=== PATIENT | male | born 2000 | race Caucasian/White ===

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

== ENCOUNTER 2023-07-26 23:57 | Emergency (ER) | payer OTHER, SELFPAY ==
--- NOTE | ~2023-07-26 | CT_ITS ---
CT of the Abdomen and Pelvis: Indication: Abdominal pain Technique: 2.5 mm axial scans were obtained through the abdomen and pelvis following intravenous adm inistration of 100 cc of Omnipaque 350. Dose reduction technique was used on this scan by utilizing a utomated exposure control and iterative reconstruction technique. The dose-length product (DLP) was 1 248.06 mGy-cm. Findings: Scans through the lung bases are unremarkable. The liver, spleen, pancreas, gallbladder, adrenals and kidneys are within normal limits. No evidence of aortic aneurysm. No retroperitoneal lymphadenopathy. No bowel obstruction or bowel wall thickening. There is no evidence to suggest acute appendicitis. Sh otty right lower quadrant lymph nodes are present. Images through the pelvis were performed. Urinary bladder unremarkable. Prostate gland and seminal ve sicles are unremarkable. No ascites. There are bilateral L5 pars interarticularis defects, without munoz bluxation at this time. Impression: Shotty right lower quadrant lymph nodes. Correlate for mesenteric adenitis. Bilateral L5 pars interarticularis defects. Reviewed, dictated and finalized at [facility]. [employer] Impression: Shotty right lower quadrant lymph nodes. Correlate for mesenteric adenitis. Bilateral L5 pars interarticularis defects.
[2023-07-27 00:18] VITALS: BP 147/81; PULSE 78; RESP 16; TEMP 36.4; O2SAT 100
[2023-07-27 02:38] LABS: Add Urine Microscopic? NO; Appearance Urine Clear (Clear); Bilirubin Urine Negative (Negative); Blood Urine Negative (Negative); Color Urine Yellow (Yellow); Glucose Urine UA Negative (Negative); Ketones Urine Negative (Negative); Leukocyte Esterase Ur Negative LEU/UL (Negative); Nitrate Urine Negative (Negative); Protein Urine Negative (Negative); Specific Grav Ur 1.018 (1.001-1.035)
[2023-07-27 02:40] LABS: Basophils Absolute Auto 0.1 K/mm3 (0.0-0.1); Basophils Percent Auto 1.1 % (0.2-1.2); Eosinophils Absolute Auto 0.8 K/mm3 (0-0.3); Eosinophils Percent Auto 11.1 % (0-4.4); Hematocrit 52.1 % (42.0-52.0); Hemoglobin 17.4 g/dL (14.0-18.0); Immature Granulocyte Absolute 0.03 K/mm3 (0.00-0.031); Immature Granulocyte Percent A 0.4 % (0-0.5); Lymphocytes Percent Auto 25.5 % (18.3-44.2); Mean Corpuscular HGB Conc 33.4 g/dl (32-36); Mean Corpuscular Hemoglobin 30.4 pg (26-34); Mean Corpuscular Volume 91.1 fl (80-100); Mean Platelet Volume 12.2 fl (7.4-10.4); Monocytes Absolute Auto 0.6 K/mm3 (0.1-0.6); Monocytes Percent Auto 7.5 % (2.6-8.5); Neutrophils Absolute Auto 4.1 K/mm3 (1.3-6.7); Neutrophils Percent Auto 54.4 % (45.5-73.1); Platelet Count Result 234 k/mm3 (150-375); Red Blood Count 5.72 M/mm3 (4.6-6.20); Red Cell Distribution Width 12.6 % (11.5-14.5); White Blood Count 7.5 K/mm3 (4.5-10.0)
[2023-07-27 02:47] LABS: Alanine Aminotransferase 49 U/L (6-50); Albumin Level 5.1 g/dL (3.5-5.1); Alkaline Phosphatase 95 U/L (38-126); Anion Gap 14 mmol/L (8-16); Aspartate Amino Transferase 31 U/L (17-59); Bilirubin,Total 0.6 mg/dL (0.2-1.3); Blood Urea Nitrogen 12 mg/dL (9-20); Calcium 9.3 mg/dL (8.4-10.2); Carbon Dioxide 19 mmol/L (22-30); Chloride 109 mmol/L (98-107); Estimated CRCL calculation 119 ml/min; Estimated Glomerular Filt Rate > 60; Glucose 101 mg/dL (65-110); Lipase 72 U/L (23-300); Potassium 3.9 mmol/L (3.4-5.0); Sodium 142 mmol/L (137-145)
--- NOTE | 2023-07-27 02:55 | ED.ABDPAIN ---
HPI - Abdominal Pain General Chief Complaint: Abdominal Pain Stated Complaint: abd pain Time Seen by Provider: 07/27/23 01:52 History of Present Illness HPI narrative: Patient presents to the emergency department with his mom. He has had intermittent episodes of left-sided abdominal pain and vomiting over the past 6 weeks. Also having diarrhea daily. Denies fevers and chills. Related Data Home Medications Medication Instructions Recorded Confirmed Keppra 250 mg BID 04/27/20 04/27/20 Allergies Allergy/AdvReac Type Severity Reaction Status Date / Time No Known Allergies Allergy Verified 07/27/23 00:18 Review of Systems Review of Systems: Negative except what is documented in the [facility] Social History Social History Gender identity (if verbalized by the patient): Male Exam Narrative: GENERAL: Well-appearing, well-nourished, and in no acute distress. HEAD: Normocephalic, atraumatic. EYES: PERRLA and EOMI. ENT: Nares clear, no rhinorrhea or epistaxis. Mucous membranes moist. NECK: Supple. CHEST: Clear to auscultation. No respiratory distress. HEART: Regular rate and rhythm. ABDOMEN: Soft, nondistended, mild left-sided tenderness EXTREMITIES: Normal range of motion. No edema. SKIN: Warm, dry, no rash. NEURO: No focal deficits. Alert and oriented x3. PSYCH: Normal mood and affect. Course Course Emergency Course: Concern for colitis possible Crohn's or ulcerative colitis. CT and labs pending Vital Signs Vital signs: Vital Signs Temperature 36.4 C 07/27/23 00:18 Pulse Rate 78 07/27/23 00:18 Respiratory Rate 16 07/27/23 00:18 Blood Pressure 147/81 H 07/27/23 00:18 Pulse Oximetry 100 07/27/23 00:18 Oxygen Delivery Room Air 07/27/23 00:18 Temperature 36.4 C 07/27/23 00:18 Pulse Rate 66 07/27/23 04:30 Respiratory Rate 14 07/27/23 04:30 Blood Pressure 138/75 07/27/23 04:30 Pulse Oximetry 97 07/27/23 04:30 Oxygen Delivery Room Air 07/27/23 00:18 MDM - Abdominal Pain Lab Data 07/27/23 02:28 07/27/23 02:28 Labs: Lab Results 07/27/23 Range/Units 02:28 WBC 7.5 (4.5-10.0) K/mm3 RBC 5.72 (4.6-6.20) M/mm3 Hgb 17.4 (14.0-18.0) g/dL Hct 52.1 H (42.0-52.0) % MCV 91.1 (80-100) fl MCH 30.4 (26-34) pg MCHC 33.4 (32-36) g/dl RDW 12.6 (11.5-14.5) % Plt Count 234 (150-375) k/mm3 MPV 12.2 H (7.4-10.4) fl Immature Gran % (Auto) 0.4 (0-0.5) % Neut % (Auto) 54.4 (45.5-73.1) % Lymph % (Auto) 25.5 (18.3-44.2) % [place] % (Auto) 7.5 (2.6-8.5) % Eos % (Auto) 11.1 H (0-4.4) % Baso % (Auto) 1.1 (0.2-1.2) % Lymph # (Auto) 1.90 (0.9-3.2) K/mm3 [place] # (Auto) 0.6 (0.1-0.6) K/mm3 Eos # (Auto) 0.8 H (0-0.3) K/mm3 Baso # (Auto) 0.1 (0.0-0.1) K/mm3 Abs Immat Gran (auto) 0.03 (0.00-0.031) K/mm3 Absolute Neuts (auto) 4.1 (1.3-6.7) K/mm3 Absolute Nucleated RBC 0.0 (0.0-0.012) K/mm3 Nucleated RBC % 0.0 (0.0-0.2) % Sodium 142 (137-145) mmol/L Potassium 3.9 (3.4-5.0) mmol/L Chloride 109 H (98-107) mmol/L Carbon Dioxide 19 L (22-30) mmol/L Anion Gap 14 (8-16) mmol/L BUN 12 (9-20) mg/dL Creatinine 1.00 (0.7-1.3) mg/dL Estim Creat Clear Calc 119 ml/min Estimated GFR > 60 (59 - ) Glucose 101 (65-110) mg/dL Calcium 9.3 (8.4-10.2) mg/dL Total Bilirubin 0.6 (0.2-1.3) mg/dL AST 31 (17-59) U/L ALT 49 (6-50) U/L Alkaline Phosphatase 95 (38-126) U/L Total Protein 9.0 H (6.3-8.2) g/dL Albumin 5.1 (3.5-5.1) g/dL Lipase 72 (23-300) U/L Urine Color Yellow (Yellow) Urine Appearance Clear (Clear) Urine pH 6.0 (5.0-9.0) Ur Specific [place] 1.018 (1.001-1.035) Urine Protein Negative (Negative) mg/dL Urine Glucose (UA) Negative (Negative) mg/dL Urine Ketones Negative (Negative) mg/dL Ur Blood (Man) Negative (Negative) Urine Nitrate Negative (N
[2023-07-27 03:00] VITALS: BP 140/89; PULSE 99; RESP 14; O2SAT 98
[2023-07-27 04:30] VITALS: BP 138/75; PULSE 66; RESP 14; O2SAT 97
== END 2023-07-27 05:20 | disposition home or self-care (01) ==
PROVIDERS: Emergency Provider Emergency Medicine
DX: R10.9 Unspecified abdominal pain (principal); R11.10 Vomiting, unspecified; R19.7 Diarrhea, unspecified
CPT/HCPCS: 36415; 74177; 80053; 81003; 83690; 85025; 99284; Q9967

== ENCOUNTER 2023-08-23 02:54 | Day surgery (SDC) | payer OTHER, SELFPAY ==
[2023-08-17 12:15] VITALS: BMI 35.4
--- NOTE | 2023-08-20 10:45 | SUR.PREOP ---
Patient called regarding upcoming procedure. Message left on patient's voicemail regarding preop instructions, appointment times, and procedure prep.
[2023-08-23 09:46] VITALS: BP 127/88; PULSE 83; RESP 16; TEMP 36.3; O2SAT 98
[2023-08-23] MEDS: LACTATED RINGERS 1,000 ML 150 ML IV CONT (09:54)
--- NOTE | 2023-08-23 10:15 | P.PNAN_ITS ---
Anes - Initial Pre Proc Eval Procedure: Operation Date: 08/23/23 11:00 Proposed Procedures p Colonoscopy - Jaret Ayala MD Date/Time: 08/23/23 10:15 Surgeon: Jaret Ayala MD Pre Op Diagnosis: Nonspecific mesenteric lymphadenitis Patient Data Age: 23 Gender: M Height: 1.75 m Weight: 108.9 kg Last Vital Signs Temp 97.4 F L 08/23/23 09:46 Pulse 83 08/23/23 09:46 Resp 16 08/23/23 09:46 BP 127/88 08/23/23 09:46 Pulse Ox 98 08/23/23 09:46 O2 Del Method Room Air 08/23/23 09:46 Allergies Allergy/AdvReac Type Severity Reaction Status Date / Time No Known Allergies Allergy Verified 08/23/23 09:42 Home Medications Medication Instructions Recorded Confirmed Type erenumab-aooe 70 mg/mL 70 mg subcut MONTHLY 08/11/23 08/23/23 History subcutaneous auto-injector (Aimovig Autoinjector) rimegepant 75 mg disintegrating 75 mg PO ONCE PRN MIGRAINES 08/11/23 08/23/23 History tablet (Nurtec ODT) dicyclomine 10 mg capsule 10 mg PO TID 08/17/23 08/23/23 History levetiracetam 1,000 mg tablet 1,000 mg PO BID 08/17/23 08/23/23 History (Keppra) topiramate 100 mg tablet 100 mg PO BID 08/17/23 08/23/23 History topiramate 50 mg tablet 50 mg PO BID 08/17/23 08/23/23 History Patient hx anesthesia problems: none Family hx anesthesia problems: none Results Review: All pre-operative results and documents have been reviewed as part of the pre- operative evaluation. [facility] Past Medical History Medical History (Updated 08/11/23 @ 10:53 by Kalyani Moreau APRN) Abdominal pain Diarrhea Mesenteric adenitis Migraines Nausea and vomiting Obesity Social History Social History (Updated 08/11/23 @ 10:06 by Mckayla De La O MA) Smoking status: Never smoker Alcohol intake: current Substance use: never Substance use type: does not use Living arrangements: with family Gender identity (if verbalized by the patient): Male Spiritual care concerns: No Anes - Eval Final PreProcedure Day of Procedure 08/23/23 10:15 Patient weight: obese Heart: regular rate and rhythm Lungs: clear to auscultation Airway: Mallampati scale class II Neurological: alert and oriented Last oral intake: >/= 8 hours ASA classification: II Emergent: no Anesthetic plan: proceed Anesthesia type and monitoring: general GIVS and standard monitoring Results Review: All pre-operative results and documents have been reviewed as part of the pre- operative evaluation. Informed Consent: The patient's anesthetic plan and its attendant risks and benefits were discussed with the patient/family/POA. Questions were solicited and answers provided to the satisfaction of the patient/family/POA.
--- NOTE | 2023-08-23 10:27 | WPDHPUPDATE1 ---
History and Physical Update Update Date/Time: 08/23/23 10:27 History and Physical has been reviewed, including an updated exam of the patient. There are NO changes in the patient's condition. Risks, benefits, and alternatives have been discussed and questions answered. Patient agrees to proceed with procedure.
[2023-08-23 10:51] VITALS: BP 126/72; PULSE 62; RESP 20; O2SAT 100
[2023-08-23 11:01] VITALS: BP 120/75; PULSE 58; RESP 19; O2SAT 100
[2023-08-23 11:11] VITALS: BP 127/83; PULSE 59; RESP 19; O2SAT 100
== END 2023-08-23 11:14 | disposition home or self-care (01) ==
PROVIDERS: Visit Provider Internal Medicine Gastroenterology
PROC: 0DJD8ZZ Inspection of Lower Intestinal Tract, Via Natural or Artificial Opening Endoscopic (ICD-10-PCS; CPT 45378; principal; 2023-08-23 11:00)
DX: I88.0 Nonspecific mesenteric lymphadenitis (principal); K64.8 Other hemorrhoids; G43.909 Migraine, unspecified, not intractable, without status migrainosus; E66.9 Obesity, unspecified; Z68.35 Body mass index [BMI] 35.0-35.9, adult
CPT/HCPCS: 45378; J2704; J7120

== ENCOUNTER 2024-02-15 08:12 | Emergency (ER) | payer OTHER, SELFPAY ==
[2024-02-15 08:19] VITALS: BP 128/79; PULSE 97; RESP 16; TEMP 36.8; O2SAT 98
--- NOTE | 2024-02-15 08:24 | ED.EAR ---
HPI - Ear Problem General Chief complaint: Ear Stated complaint: Ear Pain Time Seen by Provider: 02/15/24 08:30 Source: patient, RN notes reviewed and old records reviewed Mode of arrival: ambulatory Limitations: no limitations History of Present Illness HPI Narrative: 23 year old male who presents to [facility] care with complaints of left ear pain for about 2 week duration and some times headache discomfort along with his ear pain. Patient reports no sinus congestion or drainage, denies any known fevers, chills or sweats or any body aches. Patient reports history of migraines and states that they are much better controlled now with medication regime usually 2 a month now. MD Complaint: ear pain Location: left ear Duration: constant Severity: moderate Discharge from ear: Reports no Treatment prior to arrival: other (took topiramate) Related Data Home Medications Medication Instructions Recorded Confirmed erenumab-aooe 70 mg/mL 70 mg subcut MONTHLY 08/11/23 02/15/24 subcutaneous auto-injector (Aimovig Autoinjector) rimegepant 75 mg disintegrating 75 mg PO ONCE PRN MIGRAINES 08/11/23 02/15/24 tablet (Nurtec ODT) levetiracetam 1,000 mg tablet 1,000 mg PO BID 08/17/23 02/15/24 (Keppra) topiramate 100 mg tablet 100 mg PO BID 08/17/23 02/15/24 topiramate 50 mg tablet 50 mg PO BID 08/17/23 02/15/24 Allergies Allergy/AdvReac Type Severity Reaction Status Date / Time No Known Allergies Allergy Verified 02/15/24 08:28 Review of Systems Review of Systems: CONSTITUTIONAL: Denies malaise, chills, sweats, or fever. EYES: Denies visual changes, redness, or discharge. ENT: Reports no rhinorrhea, congestion, sinus pain, left otalgia and no sore throat. CARDIOVASCULAR: Denies chest pain, palpitations, or edema. RESPIRATORY: Reports no cough.? Denies dyspnea. GASTROINTESTINAL: Denies abdominal pain, nausea, vomiting, diarrhea SKIN: Denies rash or itching. MUSCULOSKELETAL: Denies myalgia. NEUROLOGIC: positive for headaches. All systems reviewed & are unremarkable except as noted in HPI and below PMFSH Past Medical History Medical History Abdominal pain Diarrhea Mesenteric adenitis Migraines Nausea and vomiting Obesity Seizures none since 6th grade on Keppra Social History Social History Smoking status: Never smoker Alcohol intake: current Substance use: never Substance use type: does not use Living arrangements: with family Gender identity (if verbalized by the patient): Male Spiritual care concerns: No Comments At time of signature, agree with nursing past medical, surgical, social and family history. There is no relevant family history pertinent to the presenting complaint Exam Narrative: GENERAL: Well-appearing, well-nourished, and in no acute distress. HEAD: Normocephalic EYES: PERRLA, conjunctivae clear, no nystagmus ENT: Nares clear, turbinates edematous and erythematous, clear discharge. Mucous membranes moist.Left ear with some redness, Right TM pearly iniguez with dull light reflex bilaterally; no tragal tenderness. Oropharynx erythematous without lesions. Tonsils not enlarged and without exudate, no drooling, no hoarseness, no trismus, uvula midline. NECK: Supple. No lymphadenopathy CHEST: Clear to auscultation, breath sounds equal. No wheezing, rhonchi, rales, or stridor. No respiratory distress, speaks in full sentences.no cough noted SAO2 98% on room air HEART: Regular rate and rhythm. No murmur heard. SKIN: Warm, dry, no rash. NEURO: Alert and oriented x3. PSYCH: Normal mood and affect Course Course Emergency Course: Patient is aware of diagnosis, understands and agrees to treatment plan.? Anticipatory guidance given.? Patient agrees to follow-up as directed and is aware of reasons to seek care at the emergency department. Yannick
== END 2024-02-15 08:45 | disposition home or self-care (01) ==
PROVIDERS: Emergency Provider Registered Nurse
DX: H65.02 Acute serous otitis media, left ear (principal); E66.9 Obesity, unspecified; Z68.35 Body mass index [BMI] 35.0-35.9, adult
CPT/HCPCS: 99213; G0463

== ENCOUNTER 2024-09-13 09:46 | Emergency (ER) | payer OTHER, SELFPAY ==
[2024-09-13 10:42] VITALS: BP 146/68; PULSE 90; RESP 16; TEMP 36.4; O2SAT 100
--- NOTE | 2024-09-13 11:32 | ED_ITS ---
HPI - URI/Sore Throat General Chief Complaint: Upper Respiratory Infection Stated Complaint: SORE THROAT/COUGH Time Seen by Provider: 09/13/24 11:34 Source: patient, RN notes reviewed and old records reviewed Mode of arrival: ambulatory Limitations: no limitations History of Present Illness HPI Narrative: 24 year old male presents to [facility] care with 1 week duration of cough which is productive of yellowish brown phlegm some throat pain, nasal congestion with drainage and his ears have been popping. Patient reports no known fevers but has had chills and sweats. He states that he has been taking Ibuprofen,DayQuil and Nyhhot col weekQuil for his symptoms. MD elicited complaint: cough, sore throat, rhinorrhea and nasal congestion Onset (ago): week(s) (1) Severity: moderate Description of mucous: yellow and other (brown) Treatments prior to arrival: ibuprofen (DayQuil and NyQuil) and other Related Data Home Medications ?Medication ?Instructions ?Recorded ?Confirmed ?Last Taken ?Type erenumab-aooe 70 mg/mL 70 mg subcut MONTHLY 08/11/23 02/15/24 Unknown History subcutaneous auto-injector (Aimovig Autoinjector) rimegepant 75 mg disintegrating 75 mg PO ONCE PRN MIGRAINES 08/11/23 02/15/24 08/22/23 History tablet (Nurtec ODT) levetiracetam 1,000 mg tablet 1,000 mg PO BID 08/17/23 02/15/24 08/23/23 09:00 History (Keppra) topiramate 100 mg tablet 100 mg PO BID 08/17/23 02/15/24 08/23/23 09:00 History topiramate 50 mg tablet 50 mg PO BID 08/17/23 02/15/24 08/23/23 09:00 History Allergies Allergy/AdvReac Type Severity Reaction Status Date / Time No Known Allergies Allergy Verified 09/13/24 10:55 Review of Systems Review of Systems: CONSTITUTIONAL: Positive for malaise, chills, sweats, unknown if fever. EYES: Denies visual changes, redness, or discharge. ENT: Reports rhinorrhea, congestion, sinus pain, otalgia and sore throat. CARDIOVASCULAR: Denies chest pain, palpitations, or edema. RESPIRATORY: Reports cough.? Denies dyspnea. GASTROINTESTINAL: Denies abdominal pain, nausea, vomiting, diarrhea SKIN: Denies rash or itching. MUSCULOSKELETAL: Denies myalgia. NEUROLOGIC: Denies headache. All systems reviewed & are unremarkable except as noted in HPI and below PMFSH Past Medical History Medical History Migraines Seizures none since 6th grade on Keppra Obesity Nausea and vomiting Abdominal pain Diarrhea Mesenteric adenitis Social History Social History Smoking status: Never smoker Alcohol intake: current Substance use: never Substance use type: does not use Living arrangements: with family Gender identity (if verbalized by the patient): Male Spiritual care concerns: No Comments At time of signature, agree with nursing past medical, surgical, social and family history. There is no relevant family history pertinent to the presenting complaint Exam Narrative: GENERAL: Well-appearing, well-nourished, and in no acute distress. HEAD: Normocephalic EYES: PERRLA, conjunctivae clear ENT: Nares clear, turbinates edematous and erythematous, clear to yellowish discharge. Mucous membranes moist. TM pearly iniguez with dull light reflex bilaterally; no tragal tenderness. Oropharynx erythematous without lesions. Tonsils not enlarged and without exudate, no drooling, no hoarseness, no trismus, uvula midline. PND NECK: Supple. No lymphadenopathy CHEST: Clear to auscultation, breath sounds equal. No wheezing, rhonchi, rales, or stridor. No respiratory distress, speaks in full sentences.productive cough, SAO2 100% on room air HEART: Regular rate and rhythm. No murmur heard. SKIN: Warm, dry, no rash. NEURO: Alert and oriented x3. PSYCH: Normal mood and affect Course Course Emergency Course: Patient is aware of diagnosis, understands and agrees to treatment plan.? Anticipatory guidance given.? Patient agrees to follow-up as directed and is aware of reasons to seek care at the emergency department. Portions of this record may have been created with voice recognition software Level of Care: Express Care Visit Vital Signs Vital signs: Vital Signs Oxygen Delivery Room Air 09/13/24 10:38 Temperature 36.4 C L 09/13/24 10:42 Pulse Rate 90 09/13/24 10:42 Respiratory Rate 16 09/13/24 10:42 Blood Pressure 146/68 H 09/13/24 10:42 Pulse Oximetry 100 09/13/24 10:42 Oxygen Delivery Room Air 09/13/24 10:38 Reviewed MDM - URI/Sore Throat MDM Narrative Medical decision making narrative: Differential diagnosis considered: Benitez virus, strep pharyngitis, allergic r hinitis, upper respiratory tract infection, sinusitis, rhinosinusitis, nasopharyngitis. viral pharyngitis, otitis media, otitis externa, pneumonia, bronchitis, viral cough syndrome, viral syndrome, and influenza.? Exam findings show no acute concerns or changes; patient is non-toxic appearing and is in no distress.? Patient is appropriate for outpatient treatment and follow-up. Differential Diagnosis Differential diagnosis: Likely upper respiratory infection, sinusitis, viral infection, pharyngitis and other (strep pharyngitis, cough) Medical Records Attestation: I reviewed the patient's medical records. Lab Data Attestation: I reviewed the patient's lab results. Lab results narrative: strep screen negative Labs: Lab Results 09/13/24 Range/Units 11:54 POC Grp A Strep Screen Negative (Negative) Critical Care Time Critical Care Time Critical Care Time: No Discharge Plan Discharge Clinical Impression: Upper respiratory infection with cough and congestion Patient Disposition: Home, Self-Care Condition: Stable Instructions: Antibiotic Form, Upper Respiratory Infection (ED), Acute Cough (ED) Additional Instructions: Increase fluids especially juices and water [id number] cough and cold medicine of your choice for your symptoms Zyrtec Claritin or Maribell daily use Coricidin brand decongestant since your blood pressure is elevated Tylenol or ibuprofen for any fever pain Steroids as directed--take with food heat to the face 20-30 minutes 4-6 times a day for pain Salt water gargles, throat lozenges or throat sprays as desired Antibiotic as directed--finished the medication If your symptoms persist, change or worsen significantly before you can contact your personal physician then please, without delay, go to the emergency department for further evaluation. Follow-up with PCP in 7-10 days or sooner if needed Follow up with PCP soon in regards to your blood pressure which is elevated above threshold for referral. Blood pressure above 120/80 may indicate pre- hypertension. 146/68 Patient Language: Eritrean Prescriptions: New azithromycin 500 mg tablet See Rx Instructions .ROUTE .COMPLEX Qty: 5 0RF Rx Instructions: For 500 mg dose pack: take 500 mg once daily for 5 days prednisone 50 mg tablet 50 mg PO DAILY Qty: 5 0RF Rx Instructions: take in am for the next 5 days No Action Aimovig Autoinjector 70 mg/mL auto-injector 70 mg subcut MONTHLY Nurtec ODT 75 mg tablet,disintegrating 75 mg PO ONCE PRN (Reason: MIGRAINES) Rx Instructions: as a single dose topiramate 100 mg tablet 100 mg PO BID topiramate 50 mg tablet 50 mg PO BID levetiracetam [Keppra] 1,000 mg tablet 1,000 mg PO BID Follow-up/Referrals: PHYSICIAN,VEHICLE DISMANTLER [Primary Care Provider] - Stand Alone Forms: Work/School Release IP Time of Disposition: 11:53 Quality Itz Coma Scale Eyes: Open Verbal: Oriented and Alert Motor: Follows Commands [place] Coma Total Score: 15
[2024-09-13 11:56] LABS: EDSTREPNEGPOS1 Negative (Negative)
== END 2024-09-13 11:57 | disposition home or self-care (01) ==
PROVIDERS: Emergency Provider Registered Nurse
DX: J06.9 Acute upper respiratory infection, unspecified (principal); G40.909 Epilepsy, unspecified, not intractable, without status epilepticus
CPT/HCPCS: 87081; 87880; 99213; G0463

== ENCOUNTER 2025-04-29 15:20 | Emergency (ER) | payer OTHER, SELFPAY ==
--- NOTE | ~2025-04-29 | XR_ITS ---
HISTORY: innjury COMPARISON: None TECHNIQUE: 3 views of the right hand were performed. FINDINGS: Acute oblique fracture of the proximal shaft of the third metacarpal is identified with ulnar and jenn javan displacement The joint spaces are preserved. The carpal arcs are intact. Bone mineralization is age-appropriate. Moderate dorsal soft tissue swelling. No radiopaque foreign body is identified. IMPRESSION: Acute oblique fracture of the proximal shaft of the third metacarpal with ulnar and dorsal displaceme nt of the distal fracture fragment. Reviewed, dictated and finalized at location A. IMPRESSION: Acute oblique fracture of the proximal shaft of the third metacarpal with ulnar and dorsal displacement of the distal fracture fragment.
--- OUTSIDE RECORDS SUMMARY | 2025-04-29 15:23 | XMS_ITS | Clinical Summary ---
Author Organization [facility] Address [address] [place] [address] Care Team Providers Care Social Service Agency Director Name Role Phone Demarco Kilgore MD Primary Care Provider [phone] Source Comments [facility],non-owned Affiliates and Associated Physician Practices is amultiple site organization consisting of ambulatory clinics and hospital sitesin [place], [place], [place] and [place]. This disclosure is being madepursuant to the Care Everywhere program and may not contain all information available regarding this patient. Last updated 18.[facility] Allergies No known active allergies Medications * Be aware that medications may not be up to date on this document. Alwaysverify current medications with the patient. albuterol HFA (PROVENTIL;VENTOL IN;PROAIR) 108 (90 BASE) MCG/ACT inhalerIndication s:Asthma, mild intermittent (HCC),Asthma with acute exacerbation (HCC),Acute upper respiratory infections of unspecified site Inhale 2 Puffs by mouth every 6 hours as needed. 3 Inhaler 3 1 Active AeroChamber Plus (AEROCHAMBER)[place] cations:Asthma, mild intermittent (HCC),Asthma with acute exacerbation (HCC),Acute upper respiratory infections of unspecified site Use as directed. 1 Device 0 1 Active naproxen (NAPROSYN) 500 MG tablet Take 1 tablet by mouth as needed for Pain (To be used at the onset of a headache) 20 tablet 5 9 Active levETIRAcetam (KEPPRA) 1000 MG tablet Take 1 tablet by mouth 2 times daily 60 tablet 11 9 Active riboflavin 400 MG capsule Take 1 capsule by mouth every morning 30 capsule 11 9 Active SUMAtriptan (IMITREX) 50 MG tablet Take 50 mg by mouth daily as needed - may repeat one time for Migraine Maximum daily dose: 200mg/24 hours Active topiramate (TOPAMAX) 100 MG tablet Take 1 tablet by mouth 2 times daily Please use 50 mg in AM and 100 mg at Bedtime for 10 days. 90 tablet 1 9 Active Active Problems Problem Noted Date Diagnosed Date Migraine without aura, not intractable 8 Assessment & Plan (06/21/2018 4:22 PM CDT): Well controlled on topamax 100 mg QHS. Will continue this for now. 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 Previous taper trial of keppra was unsuccessful. We can attempt to taper to monotherapy in the summer via this route: Will discontinue topamax and start depakote instead. If adequate seizure and headache control, will then try to taper off keppra. Goal is to achieve monotherapy with depakote. Plan: -Continue keppra 750 mg BUD, topamax 100 mg QHS -Follow seizure precautions -Return to clinic in 6 months. Call with concerns. Convulsions Immunizations Immunization Administration Dates Next Due DTaP VACCINE IM (6wk-6yrs) 12/15/2005,,2001,2001,07/12 HEP B VACCINE, PED/ADOL 02/08/2002,2001, HIB BOOSTER 12/07/2002,2001,2001 ,2001 MMR 12/15/2005,05/11/2002 PNEUMOCOCCAL CONJ, PEDS 05/11/2002,2001,,2001 PNEUMOCOCCAL PPSV23 07/15/2004 POLIO IPV 12/15/2005,08/11/2002,2001 ,2001 VARICELLA 08/11/2002 Family History Medical History Relation Name Comments Other - Neurologic Other Silvio 's leukodystrophy Relation Name Status Comments Other Social History Tobacco Use Types Packs/Day Years Used Date Smoking Tobacco: Never Smokeless Tobacco: Never Alcohol Use Standard Drinks/Week Comments No 0 (1 standard drink = 0.6 oz pur e alcohol) Sex and Gender Information Value Date Recorded Sex Assigned at Not on file Legal Sex Male 6:48 AM ICE CARVER Gender Identity Not on file Sexual Orientation Not on file Last Filed Vital Signs Vital Sign Reading Time Taken Comments Blood Pressure 108/70 07/17/2019 12:51 PM ICE CARVER Pulse 56 07/17/2019 12:51 PM ICE CARVER Temperature 36.7 C (98.1 F) 07/17/2019 12:51 PM ICE CARVER Respiratory Rate 12 07/17/2019 12:51 PM ICE CARVER Oxygen Saturation 98% 11/10/2015 5:20 PM ICE CARVER per pcp Inhaled Oxygen Concentration - - Weight 98 kg (216 lb 0.8 oz) 07/17/2019 12:51 PM ICE CARVER Height 177 cm (5' 9.69) 07/17/2019 12:51 PM ICE CARVER Body Mass Index 31.28 07/17/2019 12:51 PM ICE CARVER Plan of Treatment Health Maintenance Due Date Last Done Comments DTAP/TDAP/TD VACCINES (6 - Tdap) 2012 12/15/2005, 12/07/2002, 2001, Additional history exists HIV SCREENING 2016 HPV VACCINE (1 - Male 3-dose series) 2016 MENINGOCOCCAL (Group B) VACCINE SHARED DECISION-MAKING (1 of 2 - Standard) 2017 HEPATITIS C SCREENING 04/30/2019 COVID-19 VACCINE (1 - 2024-25 season) 2024 DEPRESSION SCREENING 09/13/2024 INFLUENZA VACCINE (#1) 2025 ZOSTER VACCINE (1 of 2) 2051 HEPATITIS B VACCINE Completed 02/08/2002, 2001, 2001 HIB VACCINE Completed 12/07/2002, 10/15, 2001, Additional history exists PNEUMOCOCCAL VACCINE Completed 07/15/2004, 05/11/2002, 2001, Additional history exists MENINGOCOCCAL GROUPS A/C/Y/W VACCINE Aged Out No longer eligible based on patient's age to complete this topic Insurance AETNA AETNA AETNA AETNA Care Teams Social Service Agency Director Relationship Specialty Start Date End Date Demarco Kilgore MD [address] [place] [address] PCP - General Pediatrics 12/31/16
--- OUTSIDE RECORDS SUMMARY | 2025-04-29 15:23 | XMS_ITS | Clinical Summary ---
Author Organization [facility] Address [address] [facility] Attn: Epic Prelude ADT [place]MARK [place] [address] Care Team Providers Care Customer Care Consultant Name Role Phone Unavailable Primary Care Provider Unavailabl e Social History Tobacco Use Types Packs/Day Years Used Date Smoking Tobacco: Never Assessed Sex and Gender Information Value Date Recorded Sex Assigned at Not on file Legal Sex Male 3:26 PM CDT Gender Identity Not on file Sexual Orientation Not on file Plan of Treatment Health Maintenance Due Date Last Done Comments HPV VACCINES (1 - Male 3-dose series) 2016 DTAP/TDAP/TD VACCINES (1 - Tdap) 2020 HEPATITIS B VACCINES (1 of 3 - 19+ 3-dose series) 04/14 INFLUENZA VACCINE (#1) 2025 Insurance RX [employer] Commercial RX [employer] Commercial
--- OUTSIDE RECORDS SUMMARY | 2025-04-29 15:23 | XMS_ITS | Clinical Summary ---
Author Organization [facility] Address [address] [place] [address] Care Team Providers Care County Agricultural Agent Name Role Phone Demarco Kilgore MD Primary Care Provider [phone] Allergies No known active allergies Medications ibuprofen (ibuprofen) 200 mg tab/cap take 1 tablet by oral route every 6 hours as needed with food 0 0 6 Active INHALER, ASSIST DEVICES (AEROCHAMBER PLUS FLOW-VU,L MSK MISC) 1 Active albuterol HFA (PROVENTIL HFA,VENTOLIN HFA) 90 mcg/actuation inhaler Inhale 2 puffs every 6 hours. 1 Active levETIRAcetam (KEPPRA) 750 mg tablet Take 1 tab twice a day Reasons: Juvenile Onset Epilepsy w/Irregular Muscle Contractions, Tonic-Clonic Seizures 8 Active SUMAtriptan (IMITREX) 25 mg tabletIndicatio ns:Migraine Take 1 tablet (25 mg total) by mouth Active topiramate (TOPAMAX) 25 mg tablet Take 100 mg at bedtime 7 Active levETIRAcetam (KEPPRA) 1,000 mg tablet Take 1 tablet (1,000 mg total) by mouth 2 (two) times a day Active topiramate (TOPAMAX) 100 mg tablet Take 1 tablet (100 mg total) by mouth 2 (two) times a day Active topiramate (TOPAMAX) 50 mg tablet Take 1 tablet (50 mg total) by mouth 2 (two) times a day Take with 100mg Topiramate for total of 150mg Active Active Problems Problem Noted Date Diagnosed Date Tear of lateral collateral ligament of right kne e 08/31/2018 Migraine without aura, not intractable 8 Overview (10/20/2018): Last Assessment & Plan: Well controlled on topamax 100 mg QHS. Will continue this for now. 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 Call with concerns. 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 Headache disorder 06/28/2017 Refractive amblyopia, bilateral 06/28/2017 Seizures 11/23/2015 Asthma, mild intermittent 10/02/2010 Medical History Medical History Date Comments Asthma Asthma; Comments : DNM 09/18/2015 - Seizures (HCC) Migraines Family History Medical History Relation Name Comments No Known Problems Father No Known Problems Mother Relation Name Status Comments Father Mother Social History Tobacco Use Types Packs/Day Years Used Date Smoking Tobacco: Never Smokeless Tobacco: Never Alcohol Use Standard Drinks/Week Comments No 0 (1 standard drink = 0.6 oz pur e alcohol) Personal Safety Answer Date Recorded Have you ever been in or are you currently in a harmful physical or emotional relationship or is someone making you feel afraid or unsafe? 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 DOCTOR Gender Identity Not on file Sexual Orientation Not on file Obstetrics History Last Filed Vital Signs Vital Sign Reading Time Taken Comments Blood Pressure 116/66 06/07/2024 10:30 AM CDT Pulse 78 06/07/2024 10:30 AM CDT Temperature 36.7 C (98 F) 06/07/2024 8:02 AM CDT Respiratory Rate 19 06/07/2024 10:30 AM CDT Oxygen Saturation 99% 06/07/2024 10:30 AM CDT Inhaled Oxygen Concentration - - Weight 108 kg (238 lb 1.6 oz) 06/07/2024 7:50 AM CDT Height 175.3 cm (5' 9.02) 05/26/2024 7:42 AM CD T Body Mass Index 35.14 05/26/2024 7:42 AM CDT Plan of Treatment Health Maintenance Due Date Last Done Comments Depression Screening 2001 Hepatitis C Screening 2001 Pneumococcal vaccine <65 (2 of 3 - PCV) 07/15/2005 07/15/2004, 05/11/2002, 2001, Additional history exists DTaP/Tdap/Td Vaccine (6 - Tdap) 2012 12/15/2005, 12/15/2005, 12/07/2002, Additional history exists HPV Vaccines (1 - Male 3-dos e series) 2016 Meningococcal B Vaccine (1 o f 2 - Standard) 2017 Regular Well Visit/Exam 18-64 2019 Covid-19 Vaccine (3 - 2023-2 5 season) 2024 09/22/2021, 08/11/2021 Influenza Vaccine (#1) 2025 Hepatitis B Screening Completed 02/08/2002 , 2001, 2001 Varicella Vaccines Completed 12/15/2005, 1 2001, 05/11/2002 [facility] Care Teams County Agricultural Agent Relationship Specialty Start Date End Date Demarco Kilgore MD PCP - General 06/28/17
--- OUTSIDE RECORDS SUMMARY | 2025-04-29 15:23 | XMS_ITS | Clinical Summary ---
Author Organization [facility] Address [address] [place] [address] Care Team Providers Care Lead Burner Helper Name Role Phone Joie Montaño NP Primary Care Provider [phone] Allergies No known active allergies Medications topiramate (TOPAMAX) 50 MG Tab Take 1 tablet (50 mg total) by mouth daily. Takes 150mg at night 0 Active topiramate 100 MG tablet Take 1 tablet (100 mg total) by mouth daily with breakfast. 9 Active levETIRAcetam (KEPPRA) 500 MG tablet 0 Active Erenumab-aooe (AIMOVIG) 70 MG/ML Solution Auto-injector 9 Active rimegepant (NURTEC) 75 MG disintegrating tablet 0 Active SUMAtriptan 50 MG tablet Take 1 tablet (50 mg total) by mouth. Active albuterol sulfate HFA 108 (90 Base) MCG/ACT inhalerIndications: Mild intermittent asthma without complication (HHS/HCC) INHALE 2 PUFFS EVERY 6 HOURS NEEDED FOR WHEEZING 8.5 g 3 5 Active Active Problems Problem Noted Date Diagnosed Date Obesity (BMI 35.0-39.9 without comorbidity) 03/ Overview (11/30/2024): Struggles with weight loss. Eats heathy and exercises at least 3 times a week doing cardio and strength training. Migraine without aura, not intractable 8 Overview (11/30/2024): On Amovid, Topamax, and has PRN nurtec and sumatriptan. Controlled with use. Being prescribed by neurology. Assessment & Plan (11/30/2024 11:19 AM CDT): Resume meds as dircted and following with neuro as directed. 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. Taking Keppra and topamax. Last seizure that pt reports was a grand mal seizure was May 2024. Follow up every 6 months. Assessment & Plan (11/30/2024 11:16 AM CDT): -Resume meds as directed and following with neurology -Resume seizure precautions. Asthma, mild intermittent ([facility]) 10/02/2010 Overview (11/30/2024): Dx as a child. Rarely needs to use albuterol except when he is ill. Has not needed to use prior to exericse. His is currently . Assessment & Plan (11/30/2024 11:20 AM CDT): Will send in a new albuterol. If begins to use more then twice a week to follow up. Resolved Problems Problem Noted Date Diagnosed Date Resolved Date Migraine 11/30/2024 11/30/2024 Headache disorder 06/28/2017 11/30/2024 Immunizations Immunization Administration Dates Next Due Dtap (Acel-Immune) 12/15/2005, 3,2001,2001,1 Dtap (Generic) 12/15/2005, 3,2001,2001,1 Hepatitis A (Havrix [address]) 07/22/2021,2020 Hepatitis B Pediatric 02/08/2002,2001,04/14 Hib Vaccine, Prp-D 12/07/2002,2001, 001,2001 MMR (Generic) 12/15/2005,05/11/2002 Pneumococcal (Pneumovax 23) 07/15/2004 Pneumococcal Vaccine 05/11/2002,2001,09/08,2001 Polio Ipv (Generic) 12/15/2005,08/11/2002,2000,2001 Varicella Vaccine 08/11/2002 Family History Medical History Relation Comments Diabetes Maternal Grandmother Hypertension Mother Breast Cancer Paternal Grandmother Relation Status Comments Maternal Grandmother Mother Paternal Grandmother Social History Tobacco Use Types Packs/Day Years Used Date Smoking Tobacco: Never Smokeless Tobacco: Never Tobacco Cessation:Counseling Given: No Alcohol Use Standard Drinks/Week Comments Yes 0 (1 standard drink = 0.6 oz pur e alcohol) socially / 1x week PHQ-2 Answer Date Recorded Patient Health Questionnaire-2 Score 0 11/30/2024 Sex and Gender Information Value Date Recorded Sex Assigned at Male 11/30/2024 10:34 AM CDT 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 Gender Identity Male 11/30/2024 10:34 AM CDT Sexual Orientation Not on file Last Filed Vital Signs Vital Sign Reading Time Taken Comments Blood Pressure 130/76 11/30/2024 10:35 AM CDT Pulse 76 11/30/2024 10:35 AM CDT Temperature 36.6 C (97.8 F) 11/30/2024 10:35 AM CDT Respiratory Rate 16 11/30/2024 10:3 5 AM CDT Oxygen Saturation 98% 11/30/2024 10: 35 AM CDT Inhaled Oxygen Concentration - - Weight 115.5 kg (254 lb 9.6 oz) 03/20/2 025 10:35 AM CDT Height 179.1 cm (5' 10.5) 11/30/2024 1 0:35 AM CDT Body Mass Index 36.01 11/30/2024 10:35 AM CDT Plan of Treatment Health Maintenance Due Date Last Done Comments Pneumococcal Vaccine: Pediatrics (0 to 5 Years) and At-Risk Patients (6 to 49 Years) (2 of 3 - PCV) 07/15/2005 07/15/2004, 05/11/2002, 2001, Additional history exists DTaP, Tdap and Td Vaccines (6 - Tdap) 2012 12/15/2005, 12/15/2005, 12/07/2002, Additional history exists HPV Vaccines (1 - Male 3-dose series) 2016 Meningococcal B Vaccine (1 of 2 - Standard) 2017 COVID-19 Vaccine (3 - season) 2024 09/22/2021, 08/11/2021 Annual Physical 11/30/2025 11/30/2024 Hepatitis B Vaccines Completed 02/08/2002, 2001, 2001 PHQ-2 (Physician [place]) Completed 11/30/2024 Hepatitis C Completed 12/14/2024 Meningococcal Vaccine Aged Out No christie ronald eligible based on patient's age to complete this topic RSV Immunizations Under 20 Months Aged Out No longer eligible based on patient's age to complete this topic Procedures Procedure Name Priority Date/Time Associated Diagnosis Comments HEPATITIS C ANTIBODY Routine 12/14/2024 7:35 AM CDT Need for hepatitis C screening test from Last 3 Months or Most Recently Relevant to Health Maintenance Results * HEPATITIS C ANTIBODY (12/14/2024 7:35 AM CDT) HEPATITIS C AB NON-REACTI VE NON-REACT AJNE 12/14/2024 6:35 PM CDT [facility] Comment: ANTIBODIES TO HCV NOT DETECTED. DOES NOT EXCLUDE THE POSSIBILITY OF EXPOSURE TO HCV. 12/14/2024 7:35 AM CDT us Joie Montaño HVAC R INSTRUCTOR LABORATORY Final Res ult [facility] [address] [place] [address], [id number] from Last 3 Months or Most Recently Relevant to Health Maintenance [place] [address] [facility] Care Teams Lead Burner Helper Relationship Specialty Start Date End Date Joie Montaño NP [address] [place] [address] PCP - General NURSE PRACTITIONER 11/20/24
[2025-04-29 15:35] VITALS: BP 138/90; PULSE 68; RESP 16; TEMP 36.8; O2SAT 98
--- OUTSIDE RECORDS SUMMARY | 2025-04-29 15:54 | XMS_ITS | Clinical Summary ---
Author Organization [facility] Address [address] [place] [address] Care Team Providers Care Team Physician Name Role Phone Demarco Kilgore MD Primary Care Provider [phone] Source Comments [facility],non-owned Affiliates and Associated Physician Practices is amultiple site organization consisting of ambulatory clinics and hospital sitesin [place], [place], [place] and [place]. This disclosure is being madepursuant to the Care Everywhere program and may not contain all information available regarding this patient. Last updated 18.[facility] Allergies No known active allergies Medications [...] on file Legal Sex Male 6:48 AM HEEL TOP LIFT SPLITTER Gender Identity Not on file Sexual Orientation Not on file Last Filed Vital Signs Vital Sign Reading Time Taken Comments Blood Pressure 108/70 07/17/2019 12:51 PM HEEL TOP LIFT SPLITTER Pulse 56 07/17/2019 12:51 PM HEEL TOP LIFT SPLITTER Temperature 36.7 C (98.1 F) 07/17/2019 12:51 PM HEEL TOP LIFT SPLITTER Respiratory Rate 12 07/17/2019 12:51 PM HEEL TOP LIFT SPLITTER Oxygen Saturation 98% 11/10/2015 5:20 PM HEEL TOP LIFT SPLITTER per pcp Inhaled Oxygen Concentration - - Weight 98 kg (216 lb 0.8 oz) 07/17/2019 12:51 PM HEEL TOP LIFT SPLITTER Height 177 cm (5' 9.69) 07/17/2019 12:51 PM HEEL TOP LIFT SPLITTER Body Mass Index 31.28 07/17/2019 12:51 PM HEEL TOP LIFT SPLITTER Plan of Treatment Health Maintenance Due Date [...] Insurance AETNA AETNA AETNA AETNA Care Teams Team Physician Relationship Specialty Start Date End Date Demarco Kilgore MD [address] [place] [address] PCP - General Pediatrics 12/31/16
--- OUTSIDE RECORDS SUMMARY | 2025-04-29 15:54 | XMS_ITS | Clinical Summary ---
Author Organization [facility] Address [address] [facility] Attn: Epic Prelude ADT LETYMARK [place] [address] Care Team Providers Care Matcher Operator Name Role Phone Unavailable Primary Care Provider [...]
--- OUTSIDE RECORDS SUMMARY | 2025-04-29 15:54 | XMS_ITS | Clinical Summary ---
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
--- OUTSIDE RECORDS SUMMARY | 2025-04-29 15:54 | XMS_ITS | Clinical Summary ---
Author Organization [facility] Address [address] [place] [address] Care Team Providers Care Salesperson Books Name Role Phone Joie Montaño NP Primary Care Provider [phone] Allergies No known active allergies Medications topiramate [...] and following with neuro as directed. 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 Taking Keppra and topamax. Last seizure that pt reports was a grand mal seizure was May 2024. Follow up every 6 months. Assessment & Plan (11/30/2024 11:16 AM CDT): -Resume meds as directed and following with neurology -Resume seizure precautions. Asthma, mild intermittent ([facility]) 10/02/2010 Overview (11/30/2024): Dx as a child. 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 DOES NOT EXCLUDE THE POSSIBILITY OF EXPOSURE TO HCV. 12/14/2024 7:35 AM CDT us Joie Montaño PT SKILLED LABORATORY Final Res ult [facility] [address] [place] [address], [id number] from Last 3 Months or Most Recently Relevant to Health Maintenance [place] [address] [facility] Care Teams Salesperson Books Relationship Specialty Start Date End Date Joie Montaño NP [address] [place] [address] PCP - General NURSE PRACTITIONER 11/20/24
[2025-04-29] MEDS: HYDROcodone/acetaminophen (*CRX) 5-325 MG TABLET 1 TAB PO (17:09)
--- NOTE | 2025-04-29 17:24 | ED_ITS ---
HPI - General Adult General Chief complaint: Extremity Injury, Upper Stated complaint: fell on R. hand last night Time Seen by Provider: 04/29/25 15:44 History of Present Illness HPI narrative: Patient is a 24-year-old male who presents ER after trip and fall last night. Struck his hand on the ground. He has had pain and deformity at the 3rd metacarpal since then. No numbness or tingling. He is able to flex the fingers with feels a clicking. No additional concerns. Did not lose consciousness. Related Data Home Medications ?Medication ?Instructions ?Recorded ?Confirmed ?Last Taken ?Type erenumab-aooe 70 mg/mL 70 mg subcut MONTHLY 08/11/23 02/15/24 Unknown History subcutaneous auto-injector (Aimovig Autoinjector) rimegepant 75 mg disintegrating 75 mg PO ONCE PRN MIGRAINES 08/11/23 02/15/24 1 10/23/22 History tablet (Nurtec ODT) levetiracetam 1,000 mg tablet 1,000 mg PO BID 08/17/23 02/15/24 08/23/23 09:00 History (Keppra) topiramate 100 mg tablet 100 mg PO BID 08/17/23 02/15/24 08/23/23 09:00 History topiramate 50 mg tablet 50 mg PO BID 08/17/23 02/15/24 08/23/23 09:00 History Allergies Allergy/AdvReac Type Severity Reaction Status Date / Time No Known Allergies Allergy Verified 04/29/25 15:37 Review of Systems Constitutional: Constitutional: Reports no additional constitutional complaints Musculoskeletal: Musculoskeletal: Reports no additional musculoskeletal complaints Neurologic: Reports system reviewed and no additional complaints, except as documented PMFSH Past Medical History Medical History Migraines Seizures none since 6th grade on Keppra Obesity Nausea and vomiting Abdominal pain Diarrhea Mesenteric adenitis Social History Social History Smoking status: Never smoker Alcohol intake: current Substance use: never Substance use type: does not use Living arrangements: with family Gender identity (if verbalized by the patient): Male Spiritual care concerns: No Exam Narrative: GENERAL: Well-appearing, well-nourished, and in no acute distress. HEAD: Normocephalic, atraumatic. ENT: Mucous membranes moist. CHEST: Clear to auscultation. No respiratory distress. EXTREMITIES: Normal range of motion. No edema. Swelling midportion of the hand over the 3rd metacarpal with tenderness. No radiation old deformity at the knuckle or finger in the hand. Normal flexion extension. Neurovascular intact. SKIN: Warm, dry, no rash. NEURO: Alert and oriented x3. PSYCH: Normal mood and affect. Course Course Emergency Course: Informed of imaging results. Splinted. Given hand follow-up. Vital Signs Vital signs: Vital Signs Temperature 98.2 F 04/29/25 15:35 Pulse Rate 68 04/29/25 15:35 Respiratory Rate 16 04/29/25 15:35 Blood Pressure 138/90 04/29/25 15:35 Pulse Oximetry 98 04/29/25 15:35 Temperature 98.2 F 04/29/25 15:35 Pulse Rate 68 04/29/25 15:35 Respiratory Rate 16 04/29/25 15:35 Blood Pressure 138/90 04/29/25 15:35 Pulse Oximetry 98 04/29/25 15:35 Procedures Orthopedic Splinting/Casting Injury #1: Splinting/Casting Date: 04/29/25 Upper Extremity Injury Location: hand Upper Extremity Immobilizer: ulnar gutter Splint: customized in ED OCL: ulnar gutter Pre-Procedure Neuro Vascular Exam: normal Post-Procedure Neuro Vascular Exam: normal Medical Decision Making Vital Signs Vital Signs: Vital Signs Temperature 98.2 F 04/29/25 15:35 Pulse Rate 68 04/29/25 15:35 Respiratory Rate 16 04/29/25 15:35 Blood Pressure 138/90 04/29/25 15:35 Pulse Oximetry 98 04/29/25 15:35 Temperature 98.2 F 04/29/25 15:35 Pulse Rate 68 04/29/25 15:35 Respiratory Rate 16 04/29/25 15:35 Blood Pressure 138/90 04/29/25 15:35 Pulse Oximetry 98 04/29/25 15:35 Imaging Data Radiologist's impression: ITS Impressions Hand X-Ray 04/29/25 16:10 IMPRESSION: Acute oblique fracture of the proximal shaft of the third metacarpal with ulnar and dorsal displacement of the distal fracture fragment. Discharge Plan Discharge Clinical Impression: Closed fracture of 3rd metacarpal Patient Disposition: Home Condition: Stable Instructions: Hand Fracture (ED) Additional Instructions: Follow-up with Hand surgery for further treatment and evaluation. You may require surgery. Take Tylenol with hydrocodone as needed for pain. Return the ER if your having increased pain, you have new numbness, or you have additional concerns. Patient Language: Belarusian Prescriptions: New hydrocodone-acetaminophen 5-325 mg tablet 1 tablet PO Q6H PRN (Reason: pain) Qty: 20 0RF No Action azithromycin 500 mg tablet See Rx Instructions .ROUTE .COMPLEX Qty: 5 0RF Rx Instructions: For 500 mg dose pack: take 500 mg once daily for 5 days prednisone 50 mg tablet 50 mg PO DAILY Qty: 5 0RF Rx Instructions: take in am for the next 5 days Aimovig Autoinjector 70 mg/mL auto-injector 70 mg subcut MONTHLY Nurtec ODT 75 mg tablet,disintegrating 75 mg PO ONCE PRN (Reason: MIGRAINES) Rx Instructions: as a single dose topiramate 100 mg tablet 100 mg PO BID topiramate 50 mg tablet 50 mg PO BID levetiracetam [Keppra] 1,000 mg tablet 1,000 mg PO BID Follow-up/Referrals: Kylie Perez MD [Physician] - 1 Week Danyel,YOSELIN Louie [Primary Care Provider] -
[2025-04-29 17:39] VITALS: BP 132/84; PULSE 63; RESP 18; O2SAT 99
[2025-04-29 17:40] VITALS: BP 132/84; PULSE 63; RESP 18; O2SAT 99
== END 2025-04-29 17:44 | disposition home or self-care (01) ==
PROVIDERS: Emergency Provider Emergency Medicine; PCP Nurse Practitioner
DX: S62.322A Displaced fracture of shaft of third metacarpal bone, right hand, initial encounter for closed fracture (principal); W19.XXXA Unspecified fall, initial encounter
CPT/HCPCS: 29125; 73130; 99284; A9270

== ENCOUNTER 2025-05-03 07:30 | Day surgery (SDC) | payer OTHER, SELFPAY ==
[2025-05-01 13:55] VITALS: BMI 36.0
--- NOTE | 2025-05-01 14:16 | PC.NURSE ---
PRE-OPERATIVE INSTRUCTIONS [address] [address] 1. Report to the Surgery Center Waiting Room, the entrance is the first door on the right after passing through the automatic sliding doors, at time __0800__on ofrd__1-50-52__. OR Time:__929__ . - Time changes happen often and if your time is changed the preop area will call you the afternoon before. - You and your visitor will be asked to self-screen and do not enter if you have any COVID symptoms. - Two visitors over, age 16 and older, are allowed.? NO children visitors are allowed at this time. - A mask is optional within the hospital at this time. 2. NPO@MN 3. Take the following medications with a SIP of water the morning of surgery: 1.____keppra 2. topiramate 3. pain pill as needed Medications to discontinue per physician order: 1. n/a date to discontinue: 4. No make-up, nail [place], hairspray, perfume, deodorant, or body powder the day of surgery. No jewelry (including any body piercings) or valuables the day of surgery. Please take a shower or bath the night before, or the morning of, surgery with an antibacterial soap. Wear comfortable, loose fitting clothing. Children are encouraged to wear pajamas. - Jewelry must be removed prior to entering the operating room. Rings and piercings that are not removed will be cut off. The center will not accept responsibility for valuables. Please leave all valuables, including medications, at home the day of surgery. 5. When going home after surgery, a licensed entry level truck driver must drive you home. NO public transportation without another adult. We recommend someone to stay with you, no alcoholic beverages, driving or important decision making for 24 hours after surgery. For pediatric surgeries, we recommend two adults to accompany a child home. 6. Follow any additional instructions given by your physician. Telephone instructions given to: patient____ and asked if any additional questions and then verbalized understanding. Patient advised to call surgeon office or the surgery center at [phone] if any additional questions.
--- NOTE | ~2025-05-03 | XR_ITS ---
XR surgery orthopedic 05/03/2025 10:21 Indication: Closed reduction right third metacarpal fracture Procedure: 5 fluoroscopic images of the right hand. 28 seconds of fluoroscopy. Comparison: 04/29/2025 Findings: There is near-anatomic alignment of third metacarpal fracture status post intraoperative fixation with 2 K wires. Impression: 1: Near-anatomic alignment post reduction of proximal fracture involving the third metacarpal, transfixed by 2 K wires. Reviewed, dictated and finalized at location O. Impression: 1: Near-anatomic alignment post reduction of proximal fracture involving the th ird metacarpal, transfixed by 2 K wires.
--- NOTE | 2025-05-03 07:01 | WPDHPUPDATE1 ---
History and Physical Update Update Date/Time: 05/03/25 07:01 Patient seen and examined in pre-operative holding area. No interval change in medical history or symptoms. Patient recalls previous discussion of benefits and alternatives to procedure. Continues to desire to proceed with closed popssible open reduction and pinning right third metacarpal fracture. Reviewed procedure, post-op expectations and risks including but not limited to bleeding, infection, injury to tendon/nerve/vessel, decreased hand function, stiffness, RSD, no change or worsening of symptoms, malunion, nonunion. I discussed the possible use of assistants and their participation in the case. Patient stated understanding and signed the consent form wishing to proceed.
--- NOTE | 2025-05-03 07:02 | W.PM.PROC2 ---
Procedure Note - Detailed Date of Procedure 05/03/25 Pre-op Diagnosis Fracture Third Metacarpal Bone RT Hand Post-op Diagnosis Same Procedure Performed crpp right third metacarpal fracture Surgeon Kylie Perez MD [employer] Production Technician adelia headley pa-c Anesthesia MAC Description of Procedure INFORMED CONSENT: The patient was seen and examined and marked in the pre-op area.? The patient signed the consent form. PROCEDURE IN DETAIL:The patient taken back to OR on the stretcher in supine position. Time out performed with anesthesia, surgeon and staff agreeing on patient's name site and surgery to be performed SCDs were placed on the lower extremities and inflated. A tourniquet was placed on {right} upper extremity and antibiotics given IV After anesthesia administered sedation I injected {6}cc 1%lido with epi and 0.5% marcaine plain at the operative site The?{right upper extremity}?was prepped and draped in sterile fashion the??{right upper extremity} was? exsanguinated with Esmarch bandage and tourniquet inflated to 250mmHg The mini C-arm was draped and brought into the field. The fracture was evaluated on multiple views of fluoroscopy. Closed reduction maneuvers were performed noting the ability to reduce the fracture but that it was unstable. I proceeded with placing two 0.045 K-wires in retrograde fashion down the metacarpal across the fracture. K-wire placement was verified on multiple views of fluoroscopy. There was maintenance of reduction of fracture fragment. The pins were trimmed appropriately. A dressing of betadine soaked alcohol swabs around pin sites, 4x4, emerson, and a volar splint was applied for patient safety, security, and comfort and secured with an ney bandage after the tourniquet was let down noting the hand was warm and well perfused. The patient was then awaken from anesthesia and transferred to the recovery room in stable condition.? Complications - none EBL- 0cc Disposition - home in stable condition Adelia Headley PA-C was essential for positioning, retraction, fluoro, closure and dressing placement [facility] Billing Surgery - Charge Forward: Surgery Billing ([id number] for adelia)
--- OUTSIDE RECORDS SUMMARY | 2025-05-03 08:00 | XMS_ITS | Clinical Summary ---
Author Organization [facility] Address [address] [address] Care Team Providers Care Housing Court Judge Name Role Phone Demarco Kilgore MD Primary Care Provider [phone] Source Comments [facility],non-owned Affiliates and Associated Physician Practices is amultiple site organization consisting of ambulatory clinics and hospital sitesin [place], [place], [place] and [place]. This disclosure is being madepursuant to the Care Everywhere program and may not contain all information available regarding this patient. 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 Gender Identity Not on file Sexual Orientation Not on file Last Filed Vital Signs Vital Sign Reading Time Taken Comments Blood Pressure 108/70 07/17/2019 12:51 PM INSPECTOR WIRE ROPE Pulse 56 07/17/2019 12:51 PM INSPECTOR WIRE ROPE Temperature 36.7 C (98.1 F) 07/17/2019 12:51 PM INSPECTOR WIRE ROPE Respiratory Rate 12 07/17/2019 12:51 PM INSPECTOR WIRE ROPE Oxygen Saturation 98% 11/10/2015 5:20 PM INSPECTOR WIRE ROPE per pcp Inhaled Oxygen Concentration - - Weight 98 kg (216 lb 0.8 oz) 07/17/2019 12:51 PM INSPECTOR WIRE ROPE Height 177 cm (5' 9.69) 07/17/2019 12:51 PM INSPECTOR WIRE ROPE Body Mass Index 31.28 07/17/2019 12:51 PM INSPECTOR WIRE ROPE Plan of Treatment Health Maintenance Due Date [...] Insurance AETNA AETNA AETNA AETNA Care Teams Housing Court Judge Relationship Specialty Start Date End Date Demarco Kilgore MD [address] [place] [address] PCP - General Pediatrics 12/31/16
--- OUTSIDE RECORDS SUMMARY | 2025-05-03 08:00 | XMS_ITS | Clinical Summary ---
Author Organization [facility] Address [address] [place] [address] Care Team Providers Care Rand Butting Machine Operator Name Role Phone Joie Montaño NP Primary Care Provider [phone] Allergies No known active allergies Medications topiramate [...] and following with neuro as directed. 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 Taking Keppra and topamax. Last seizure that pt reports was a grand mal seizure was May 2024. Follow up every 6 months. Assessment & Plan (11/30/2024 11:16 AM CDT): -Resume meds as directed and following with neurology -Resume seizure precautions. 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 Gender Identity Male 11/30/2024 10:34 AM CDT [...] Weight 115.5 kg (254 lb 9.6 oz) 025 10:35 AM CDT Height 179.1 cm [...] Vaccines Completed 02/08/2002, 2001, 2001 PHQ-2 (Physician [place]) Completed 11/30/2024 Hepatitis C Completed 12/14/2024 Meningococcal Vaccine Aged Out No christie ronald eligible based on patient's age to complete this topic RSV Immunizations Under 20 Months Aged Out No longer eligible based on patient's age to complete this topic Procedures Procedure Name Priority Date/Time Associated Diagnosis Comments IMAGE GENERIC 04/29/2025 HEPATITIS C ANTIBODY Routine 12/14/2024 7:35 AM CDT Need for hepatitis C screening test from Last 3 Months or Most Recently Relevant to Health Maintenance Results * IMAGE GENERIC (04/29/2025) Anatomical Region Laterality Modality Other 04/29/2025 us Doc Med Group Scanned SCANNING Final Resu lt * HEPATITIS C ANTIBODY (12/14/2024 7:35 AM CDT) HEPATITIS C AB NON-REACTI VE NON-REACT JANE 12/14/2024 6:35 PM CDT [facility] Comment: ANTIBODIES TO HCV NOT DETECTED. DOES NOT EXCLUDE THE POSSIBILITY OF EXPOSURE TO HCV. 12/14/2024 7:35 AM CDT us Joie Montaño CLINICAL RESEARCH ANALYST LABORATORY Final Res ult [facility] [address] [place] [address], [id number] from Last 3 Months or Most Recently Relevant to Health Maintenance Insurance [facility] Care Teams Rand Butting Machine Operator Relationship Specialty Start Date End Date Joie Montaño NP [address] [place] [address] PCP - General NURSE PRACTITIONER 11/20/24
--- OUTSIDE RECORDS SUMMARY | 2025-05-03 08:00 | XMS_ITS | Clinical Summary ---
Author Organization [facility] Address [address] Attn: Epic Prelude ADT LETYMARK [place] [address] Care Team Providers Care Kinesiologist Name Role Phone Unavailable Primary Care Provider [...]
--- OUTSIDE RECORDS SUMMARY | 2025-05-03 08:01 | XMS_ITS | Encounter Summary ---
Author Organization [facility] Address [address] [place] [address] Care Team Providers Care Roll Setter Name Role Phone Joie Montaño RECREATION PROGRAM SPECIALIST Primary Care Provider [phone] Reason for Visit * Reason Comments Image (SCAN) Encounter Details Date Type Department Care Team (Latest Contact Info) Description 04/29/2025 Scan HEALTH INFO SRVCS Scanned, Doc Med Group Image (SCAN) Social History Tobacco Use Types Packs/Day Years Used Date Smoking Tobacco: Never Smokeless Tobacco: Never Alcohol Use Standard Drinks/Week Comments Yes 0 (1 standard drink = 0.6 oz pur e alcohol) socially / 1x week PHQ-2 Answer Date Recorded Patient Health Questionnaire-2 Score 0 11/30/2024 Sex and Gender Information Value Date Recorded Sex Assigned at Male 11/30/2024 10:34 AM CDT Legal 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 Male 1:43 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 Gender Identity Male 11/30/2024 10:34 AM CDT Sexual Orientation Not on file documented as of this encounter Plan of Treatment Not on file documented as of this encounter Procedures Procedure Name Priority Date/Time Associated Diagnosis Comments IMAGE GENERIC 04/29/2025 documented in this encounter Results * IMAGE GENERIC (04/29/2025) Anatomical Region Laterality Modality Other 04/29/2025 us Doc Med Group Scanned SCANNING Final Resu lt documented in this encounter Visit Diagnoses Not on filedocumented in this encounter Additional Health Concerns Assessment Noted Time PHQ-9 Depression Total Score: 1 12/01/19 11:21 AM CDT documented as of this encounter Care Teams Roll Setter Relationship Specialty Start Date End Date Joie Montaño NP [address] [place] [address] PCP - General NURSE PRACTITIONER 11/20/24 documented as of this encounter
[2025-05-03 08:04] VITALS: BP 133/80; PULSE 66; RESP 16; TEMP 36.5; O2SAT 98
[2025-05-03] MEDS: ACETAMINOPHEN 500 MG TABLET 1000 MG PO (08:05)
[2025-05-03] MEDS: LACTATED RINGERS 1,000 ML 30 ML IV CONT (08:10)
--- NOTE | 2025-05-03 08:49 | WPDANESEPPF ---
Anes - Initial Pre Proc Eval Procedure: Operation Date: 05/03/25 09:30 Proposed Procedures p Right Third Metacarpal Closed Reduction Percutaneous Pinning - Kylie Perez MD Date/Time: 05/03/25 08:49 Surgeon: Kylie Perez MD Pre Op Diagnosis: Fracture Third Metacarpal Bone RT Hand Patient Data Age: 24 Gender: M Height: 1.78 m Weight: 114.45 kg Last Vital Signs Temp 97.7 F 05/03/25 08:04 Pulse 66 05/03/25 08:04 Resp 16 05/03/25 08:04 BP 133/80 05/03/25 08:04 Pulse Ox 98 05/03/25 08:04 O2 Del Method Room Air 05/03/25 08:04 Allergies Allergy/AdvReac Type Severity Reaction Status Date / Time No Known Allergies Allergy Verified 05/03/25 08:00 Home Medications ?Medication ?Instructions ?Recorded ?Confirmed ?Type rimegepant 75 mg disintegrating 75 mg PO ONCE PRN MIGRAINES 08/11/23 05/03/25 History tablet (Nurtec ODT) levetiracetam 1,000 mg tablet 1,000 mg PO BID 08/17/23 05/03/25 History (Keppra) topiramate 100 mg tablet 100 mg PO BID 08/17/23 05/03/25 History topiramate 50 mg tablet 50 mg PO BID 08/17/23 05/03/25 History hydrocodone 5 mg-acetaminophen 325 1 tablet PO Q6H PRN pain #20 tabs 04/29/25 05/03/25 Rx mg tablet ibuprofen 200 mg tablet (Advil) 400 mg PO Q6H PRN pain 05/01/25 05/03/25 History levetiracetam 500 mg tablet 500 mg PO BID 05/01/25 05/03/25 History rizatriptan 10 mg tablet 10 mg PO ONCE PRN migraines 05/01/25 05/03/25 History Patient hx anesthesia problems: none Family hx anesthesia problems: none Results Review: All pre-operative results and documents have been reviewed as part of the pre-operative evaluation. [facility] Past Medical History Medical History Migraines Seizures none since 6th grade on Keppra Obesity Nausea and vomiting Abdominal pain Diarrhea Mesenteric adenitis Social History Social History (Updated 04/30/25 @ 15:31 by Janay Hicks RN) Smoking status: Never smoker Alcohol intake: current Drinks per week: 5 Substance use: current Substance use type: marijuana Other substance usage details: smokes marijuana Last use: 04-28-25 Living arrangements: with family Gender identity (if verbalized by the patient): Male Spiritual care concerns: No Anes - Eval Final PreProcedure Day of Procedure 05/03/25 08:49 Heart: regular rate and rhythm Lungs: clear to auscultation Airway: Mallampati scale class III ASA classification: II Anesthetic plan: proceed Anesthesia type and monitoring: monitored anesthesia care Results Review: All pre-operative results and documents have been reviewed as part of the pre-operative evaluation. Informed Consent: The patient's anesthetic plan and its attendant risks and benefits were discussed with the patient/family/POA. Questions were solicited and answers provided to the satisfaction of the patient/family/POA.
[2025-05-03] MEDS: BUPivacaine HCL 0.5% 10 ML AMP INFILTRATE (09:29)
[2025-05-03] MEDS: LIDO 1%/EPINEPHRINE 1:100,000 20 ML VIAL 4 ML INFILTRATE (09:30)
--- NOTE | 2025-05-03 09:39 | WPDANESPN ---
Anes - Prog Note Post-Op Date/Time: 05/03/25 09:39 Vital Signs: Last Vital Signs Temp 97.7 F 05/03/25 08:04 Pulse 66 05/03/25 08:04 Resp 16 05/03/25 08:04 BP 133/80 05/03/25 08:04 Pulse Ox 98 05/03/25 08:04 O2 Del Method Room Air 05/03/25 08:04 Pain Score (VAS): no Patient Feedback: Patient satisfied with anesthetic care.
[2025-05-03 09:50] VITALS: BP 119/72; PULSE 80; RESP 16; O2SAT 97
[2025-05-03 10:00] VITALS: BP 121/70; PULSE 69; RESP 16; O2SAT 98
[2025-05-03] MEDS: oxyCODONE HCL (*CRX) 5 MG TAB IR PO (10:07)
[2025-05-03 10:10] VITALS: BP 121/82; PULSE 71; RESP 16; O2SAT 97
== END 2025-05-03 10:21 | disposition home or self-care (01) ==
PROVIDERS: PCP Nurse Practitioner; Visit Provider Plastic Surgery
PROC: (CPT 26608; principal; 2025-05-03 09:30)
DX: S62.392A Other fracture of third metacarpal bone, right hand, initial encounter for closed fracture (principal); W19.XXXA Unspecified fall, initial encounter
CPT/HCPCS: 26608; 99199

== ENCOUNTER 2025-05-15 15:25 | Outpatient (CLI) | payer OTHER, SELFPAY ==
--- NOTE | ~2025-05-15 | XR_ITS ---
EXAMINATION: XR hand RT min 3V DATE: 05/15/2025 15:39 INDICATION: Third metacarpal fracture TECHNIQUE: 4 images of the right hand were obtained. COMPARISON: Right hand x-ray 04/29/2025 FINDINGS: 2 orthopedic wires transfix a minimally displaced fracture of the proximal third of the third metacarpal with adjacent soft tissue swelling. Alignment is near- anatomic. Casting material is present. No other fracture identified. IMPRESSION: 1. Orthopedic hardware transfixes a fracture of the third metacarpal as above. Alignment is near-anatomic. Reviewed, dictated and finalized at location Q.
--- OUTSIDE RECORDS SUMMARY | 2025-05-15 15:29 | XMS_ITS | Clinical Summary ---
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
--- OUTSIDE RECORDS SUMMARY | 2025-05-15 15:29 | XMS_ITS | Clinical Summary ---
Author Organization [facility] Address [address] [place] [address] Care Team Providers Care Long Haul Truck Driver Name Role Phone Demarco Kilgore MD Primary Care Provider [phone] Source Comments [facility],non-owned Affiliates and Associated Physician Practices is amultiple site organization consisting of ambulatory clinics and hospital sitesin [place], [place], [place] and [place]. This disclosure is being madepursuant to the Care Everywhere program and may not contain all information available regarding this patient. 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 Gender Identity Not on file Sexual Orientation Not on file Last Filed Vital Signs Vital Sign Reading Time Taken Comments Blood Pressure 108/70 07/17/2019 12:51 PM HIGH SCHOOL LEARNING SUPPORT TEACHER Pulse 56 07/17/2019 12:51 PM HIGH SCHOOL LEARNING SUPPORT TEACHER Temperature 36.7 C (98.1 F) 07/17/2019 12:51 PM HIGH SCHOOL LEARNING SUPPORT TEACHER Respiratory Rate 12 07/17/2019 12:51 PM HIGH SCHOOL LEARNING SUPPORT TEACHER Oxygen Saturation 98% 11/10/2015 5:20 PM HIGH SCHOOL LEARNING SUPPORT TEACHER per pcp Inhaled Oxygen Concentration - - Weight 98 kg (216 lb 0.8 oz) 07/17/2019 12:51 PM HIGH SCHOOL LEARNING SUPPORT TEACHER Height 177 cm (5' 9.69) 07/17/2019 12:51 PM HIGH SCHOOL LEARNING SUPPORT TEACHER Body Mass Index 31.28 07/17/2019 12:51 PM HIGH SCHOOL LEARNING SUPPORT TEACHER Plan of Treatment Health Maintenance Due Date Last Done Comments DTAP/TDAP/TD VACCINES (6 - Tdap) 2012 12/15/2005, 12/07/2002, 2001, Additional history exists HIV SCREENING 2016 HPV VACCINE (1 - Male 3-dose series) 2016 HEPATITIS C SCREENING 04/30/2019 COVID-19 VACCINE ( - season) 2024 DEPRESSION SCREENING 09/13/2024 INFLUENZA VACCINE (#1) 2025 ZOSTER VACCINE (1 of 2) 2051 HEPATITIS B VACCINE Completed 02/08/2002, 2001, 2001 HIB VACCINE Completed 12/07/2002, 10/15, 2001, Additional history exists PNEUMOCOCCAL VACCINE Completed 07/15/2004, 05/11/2002, 2001, Additional history exists MENINGOCOCCAL (Group B) VACCINE SHARED DECISION-MAKING Aged Out No longer eligible based on patient's age to complete this topic MENINGOCOCCAL GROUPS A/C/Y/W VACCINE Aged Out No longer eligible based on patient's age to complete this topic Insurance AETNA AETNA T AETNA Care Teams Long Haul Truck Driver Relationship Specialty Start Date End Date Demarco Kilgore MD [address] [place] [address] PCP - General Pediatrics 12/31/16
--- OUTSIDE RECORDS SUMMARY | 2025-05-15 15:29 | XMS_ITS | Clinical Summary ---
Author Organization [facility] Address [address] [place] [address] Care Team Providers Care Geographic Information Scientist Name Role Phone Joie Montaño NP Primary Care Provider [phone] Allergies No known active allergies Medications topiramate [...] Diagnosed Date Obesity (BMI 35.0-39.9 without comorbidity) 11/12 Overview (11/30/2024): Struggles with weight loss. Eats heathy and exercises at least 3 times a week doing cardio and strength training. Migraine without aura, not intractable 8 Overview (11/30/2024): On Amovid, Topamax, and has PRN nurtec and sumatriptan. Controlled with use. Being prescribed by neurology. Assessment & Plan (11/30/2024 11:19 AM CDT): Resume meds as dircted and following with neuro as directed. 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 Taking Keppra and topamax. Last seizure that pt reports was a grand mal seizure was May 2024. Follow up every 6 months. Assessment & Plan (11/30/2024 11:16 AM CDT): -Resume meds as directed and following with neurology -Resume seizure precautions. Asthma, mild intermittent ([facility]) 10/02/2010 Overview (11/30/2024): Dx as a child. 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 Gender Identity Male 11/30/2024 10:34 AM CDT [...] Vaccines (1 - Male 3-dose series) 2016 COVID-19 Vaccine (3 - season) 2024 09/22/2021, 08/11/2021 Annual Physical 11/30/2025 11/30/2024 Hepatitis B Vaccines Completed 02/08/2002, 2001, 2001 PHQ-2 (Physician [place]) Completed 11/30/2024 Hepatitis C Completed 12/14/2024 Meningococcal B Vaccine Aged Out No l onger eligible based on patient's age to complete this topic Meningococcal Vaccine Aged Out No christie ronald eligible based on patient's age to complete this topic RSV Immunizations Under 20 Months Aged Out No longer eligible based on patient's age to complete this topic Procedures Procedure Name Priority Date/Time Associated Diagnosis Comments IMAGE GENERIC 05/03/2025 PROCEDURE GENERIC (SCAN ORDER) 05/03/2025 IMAGE GENERIC 04/29/2025 HEPATITIS C ANTIBODY Routine 12/14/2024 7:35 AM CDT Need for hepatitis C screening test from Last 3 Months or Most Recently Relevant to Health Maintenance Results * IMAGE GENERIC (05/03/2025) Only the most recent of2 resultswithin the time period is included. Anatomical Region Laterality Modality Other 05/03/2025 [facility] Scanned SCANNING Final Resu lt * PROCEDURE GENERIC (SCAN ORDER) (05/03/2025) 05/03/2025 [facility] Scanned SCANNING Final Resu lt * HEPATITIS C ANTIBODY (12/14/2024 7:35 AM CDT) HEPATITIS C AB NON-REACTI VE NON-REACT JANE 12/14/2024 6:35 PM CDT [facility] Comment: ANTIBODIES TO HCV NOT DETECTED. DOES NOT EXCLUDE THE POSSIBILITY OF EXPOSURE TO HCV. 12/14/2024 7:35 AM CDT Result [facility] Joie Montaño NP LABORATORY Final Res ult [facility] [address] [place] [phone], [id number] from Last 3 Months or Most Recently Relevant to Health Maintenance Insurance [facility] Care Teams Geographic Information Scientist Relationship Specialty Start Date End Date Joie Montaño NP [address] [place] [address] PCP - General NURSE PRACTITIONER 11/20/24
--- OUTSIDE RECORDS SUMMARY | 2025-05-15 15:29 | XMS_ITS | Clinical Summary ---
Author Organization [facility] Address [address] Attn: Epic Prelude ADT [place] [address] Care Team Providers Care Top Lift And Automatic Window Repairer Name Role Phone Unavailable Primary Care Provider [...]
== END 2025-05-15 15:26 | disposition home or self-care (01) ==
PROVIDERS: PCP Nurse Practitioner; Visit Provider Physician Assistant Surgical
DX: S62.392A Other fracture of third metacarpal bone, right hand, initial encounter for closed fracture (principal); X58.XXXA Exposure to other specified factors, initial encounter; Z96.698 Presence of other orthopedic joint implants
CPT/HCPCS: 73130

== ENCOUNTER 2025-05-29 15:28 | Outpatient (CLI) | payer OTHER, SELFPAY ==
--- NOTE | ~2025-05-29 | XR_ITS ---
X-rays right hand Indication: Third metacarpal fracture, S 62.392A Comparison: 05/15/2025 Technique: 3 views right hand Findings/Impression: 1. Slightly displaced oblique fracture proximal third metacarpal not significantly changed in alignment. 2. No significant bridging callus formation. Fracture line remains apparent. 3. K wires removed. Reviewed, dictated and finalized at location R.
--- OUTSIDE RECORDS SUMMARY | 2025-05-29 16:41 | XMS_ITS | Clinical Summary ---
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
--- OUTSIDE RECORDS SUMMARY | 2025-05-29 16:41 | XMS_ITS | Clinical Summary ---
Author Organization [facility] Address [address] Attn: Epic Prelude ADT [place] [address] Care Team Providers Care Hat Former Name Role Phone Unavailable Primary Care Provider [...]
--- OUTSIDE RECORDS SUMMARY | 2025-05-29 16:41 | XMS_ITS | Clinical Summary ---
Author Organization [facility] Address [address] [place] [address] Care Team Providers Care Purchasing Director Name Role Phone Demarco Kilgore MD Primary Care Provider [phone] [facility],non-owned Affiliates and Associated Physician Practices is amultiple site organization consisting of ambulatory clinics and hospital sitesin [place], [place], [place] and [place]. This disclosure is being madepursuant to the Care Everywhere program and may not contain all information available regarding this patient. Last updated 18.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 Gender Identity Not on file Sexual Orientation Not on file Last Filed Vital Signs Vital Sign Reading Time Taken Comments Blood Pressure 108/70 07/17/2019 12:51 PM SET UP MOLD TECHNICIAN Pulse 56 07/17/2019 12:51 PM SET UP MOLD TECHNICIAN Temperature 36.7 C (98.1 F) 07/17/2019 12:51 PM SET UP MOLD TECHNICIAN Respiratory Rate 12 07/17/2019 12:51 PM SET UP MOLD TECHNICIAN Oxygen Saturation 98% 11/10/2015 5:20 PM SET UP MOLD TECHNICIAN per pcp Inhaled Oxygen Concentration - - Weight 98 kg (216 lb 0.8 oz) 07/17/2019 12:51 PM SET UP MOLD TECHNICIAN Height 177 cm (5' 9.69) 07/17/2019 12:51 PM SET UP MOLD TECHNICIAN Body Mass Index 31.28 07/17/2019 12:51 PM SET UP MOLD TECHNICIAN Plan of Treatment Health Maintenance Due Date Last Done Comments DTAP/TDAP/TD VACCINES (6 - Tdap) 2012 12/15/2005, 12/07/2002, 2001, Additional history exists HIV SCREENING 2016 HPV VACCINE (1 - Male 3-dose series) 2016 HEPATITIS C SCREENING 04/30/2019 DEPRESSION SCREENING 09/13/2024 COVID-19 VACCINE (1 - season) 2025 INFLUENZA VACCINE (#1) 2025 ZOSTER VACCINE (1 [...] Insurance AETNA AETNA T AETNA Care Teams Purchasing Director Relationship Specialty Start Date End Date Demarco Kilgore MD [address] [place] [address] PCP - General Pediatrics 12/31/16
--- OUTSIDE RECORDS SUMMARY | 2025-05-29 16:41 | XMS_ITS | Clinical Summary ---
Author Organization [facility] Address [address] [place] [address] Care Team Providers Care Engine Maintenance Mechanic Name Role Phone Joie Montaño NP Primary Care Provider [phone] Allergies No known active allergies Medications topiramate [...] and following with neuro as directed. Seizure (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 Taking Keppra and topamax. Last seizure that pt reports was a grand mal seizure was May 2024. Follow up every 6 months. Assessment & Plan (11/30/2024 11:16 AM CDT): -Resume meds as directed and following with neurology -Resume seizure precautions. Asthma, mild intermittent ([facility]) 10/02/2010 Overview (11/30/2024): Dx as a child. 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 Gender Identity Male 11/30/2024 10:34 AM CDT [...] series) 2016 COVID-19 Vaccine (3 - season) 2025 09/22/2021, 08/11/2021 Annual Physical 11/30/2025 11/30/2024 Hepatitis B Vaccines Completed 02/08/2002, 2001, 2001 PHQ-2 (Physician [place]) Completed 11/30/2024 Hepatitis C Completed 12/14/2024 Meningococcal [...] Priority Date/Time Associated Diagnosis Comments IMAGE GENERIC 05/15/2025 IMAGE GENERIC 05/03/2025 PROCEDURE GENERIC (SCAN ORDER) 05/03/2025 IMAGE GENERIC 04/29/2025 HEPATITIS C ANTIBODY Routine 12/14/2024 7:35 AM CDT Need for hepatitis C screening test from Last 3 Months or Most Recently Relevant to Health Maintenance Results * IMAGE GENERIC (05/15/2025) Only the most recent of3 resultswithin the time period is included. Anatomical Region Laterality Modality Other 05/15/2025 [facility] [employer] [facility] [facility] Scanned SCANNING Final Resu lt * PROCEDURE GENERIC (SCAN ORDER) (05/03/2025) 05/03/2025 [facility] [employer] [facility] [facility] Scanned SCANNING Final Resu lt * HEPATITIS C ANTIBODY (12/14/2024 7:35 AM CDT) HEPATITIS C AB NON-REACTI VE NON-REACT JANE 12/14/2024 6:35 PM CDT [facility] Comment: ANTIBODIES TO HCV NOT DETECTED. DOES NOT EXCLUDE THE POSSIBILITY OF EXPOSURE TO HCV. 12/14/2024 7:35 AM CDT Joie Montaño BUNDLE TIER AND LABELER LABORATORY Final Res ult [facility] [address] [place] [id number], [id number] from Last 3 Months or Most Recently Relevant to Health [place] [address] [facility] Care Teams Engine Maintenance Mechanic Relationship Specialty Start Date End Date Joie Montaño NP [address] [place] [address] PCP - General NURSE PRACTITIONER 11/20/24
== END 2025-05-29 15:29 | disposition home or self-care (01) ==
PROVIDERS: PCP Nurse Practitioner; Visit Provider Physician Assistant Surgical
DX: S62.392D Other fracture of third metacarpal bone, right hand, subsequent encounter for fracture with routine healing (principal); X58.XXXD Exposure to other specified factors, subsequent encounter
CPT/HCPCS: 73130